=== PATIENT | male | born 1990 | race Hispanic/Latino ===

== ENCOUNTER 2022-09-20 13:27 | Emergency (ER) | payer OTHER ==
[~2022-09-20] VITALS: Ht 167.6 cm; Wt 70.3 kg
[2022-09-20 13:54] VITALS: BP 128/60
[2022-09-20 14:34] LABS: APPEARANCE,URINE CLOUDY (CLEAR); BILIRUBIN,URINE NEGATIVE (NEGATIVE); COLOR,URINE YELLOW (YELLOW); GLUCOSE, URINE (UA) NEGATIVE (NEGATIVE); KETONES,URINE 10 mg/dL (NEGATIVE); LEUKOCYTE ESTERASE ,URINE 500 Leu/uL (NEGATIVE); NITRATE,URINE NEGATIVE (NEGATIVE); PROTEIN,URINE 30 mg/dL (NEGATIVE)
[2022-09-20 14:45] LABS: MUCUS,URINE FEW LPF (None Seen); RBC,URINE 26-50 /HPF (0-1); WBC,URINE TNTC /HPF (0-1)
[2022-09-20] MEDS ORDERED: CEFTRIAXONE 1G VIAL IM ONE (16:00)
[2022-09-20] MEDS ORDERED: AZITHROMYCIN 250 MG TABLET PO ONE (16:00)
== END 2022-09-20 16:20 | disposition home or self-care (01) ==
LOC: EDH 13:27
DX: A64 Unspecified sexually transmitted disease (principal)
CPT/HCPCS: 99283; 87088; 81001; 96372; J0696